=== PATIENT | male | born 1995 | race Caucasian/White ===

== ENCOUNTER 2023-05-08 21:17 | Emergency (ER) | payer OTHER ==
[~2023-05-08] VITALS: Ht 188 cm; Wt 103.8 kg
[2023-05-09] MEDS ORDERED: KETOROLAC 60MG 2ML VIAL IM ONE (01:35)
[2023-05-09 01:51] VITALS: BP 154/82; TEMP 97.9; O2SAT 98
== END 2023-05-09 01:52 | disposition home or self-care (01) ==
LOC: M ED 21:17
DX: G89.18 Other acute postprocedural pain (principal); Z48.814 Encounter for surgical aftercare following surgery on the teeth or oral cavity
CPT/HCPCS: 96372; 99283; J1885